=== PATIENT | male | born 1965 | race Caucasian/White ===

== ENCOUNTER 2016-10-25 20:05 | Emergency (ER) | payer MEDICARE, MEDICAID ==
[~2016-10-25] VITALS: Ht 172.7 cm; Wt 68.2 kg
[~2016-10-25 20:05] MED LIST: ALTACE5 MG OR; AMIODARONE200 MG PO; ASA LO-DOSE81 MG OR; ASPIRIN325 MG PO; ASPIRIN81 MG PO; ATORVASTATIN CA40 MG PO; BUMETANIDE1 MG PO; CARVEDILOL25 MG PO; COLACE100 MG OR; CORTISPORIN OTI10 M2 AS; CYMBALTA30 MG PO; FAMOTIDINE20 M1 PO; FOLIC ACID1 MG PO; HYDRALAZINE HCL50 MG PO; KLOR-CON20 MEQ PO; LIPITOR40 M1 PO; LISINOPRIL5 MG PO; LOPRESSOR OR; LORTAB 5 OR; MULT VITAMI1 PO; NEURONTIN100 MG PO; PERCOCET 5/325M1 TAB OR; PLAVIX75 MG OR; PLAVIX75 MG PO; REGLAN5 MG OR; ULTRAM50 MG OR; VIAGRA50 MG PO; WARFARIN4 MG PO; XANAX0.25 MG OR; XANAX0.5 MG OR; ZOCOR20 MG OR; ZOLPIDEM5 M1 PO
[2016-10-25 20:38] LABS: HEMATOCRIT 32.6 % (39.0-50.0); IMMATURE GRANULOCYTES 0.4 % (0.0-1.0); MEAN CELL VOLUME 69.8 fL CALC (80.0-100.0); MEAN CORPUSCULAR HGB 21.4 pG CALC (26.0-32.0); MEAN CORPUSCULAR HGB CONC 30.7 g/L CALC (32.0-36.0); NEUT# 6.14 thou/uL (1.82-7.42); RED BLOOD COUNT 4.67 mill/uL (4.70-6.10); RED CELL DISTRI WIDTH 19.7 % (11.5-15.5)
[2016-10-25] MEDS ORDERED: BUMETANIDE1 MG PO (20:38)
[2016-10-25 20:39] LABS: URINE BILIRUBIN - DIPSTICK NEGATIVE (NEGATIVE); URINE BLOOD DIPSTICK NEGATIVE (NEGATIVE); URINE CLARITY CLEAR; URINE COLOR YELLOW; URINE GLUCOSE - DIPSTICK NEGATIVE (NEGATIVE); URINE KETONE NEGATIVE (NEGATIVE); URINE LEUK ESTERASE NEGATIVE (NEGATIVE); URINE NITRITE - DIPSTICK NEGATIVE (Negative); URINE PH 7.5 (4.5-8.0); URINE PROTEIN - DIPSTICK TRACE mg/dL (NEG-TRACE); URINE UROBILINOGEN - DIPSTICK 0.2 E.U./dL (0.2)
[2016-10-25] MEDS ORDERED: NEURONTIN100 MG PO (20:40)
[2016-10-25] MEDS ORDERED: HYDRALAZINE25 MG PO (20:42)
[2016-10-25] MEDS ORDERED: LISINOPRIL5 MG PO (20:43)
[2016-10-25] MEDS ORDERED: NORCO1 TA1 PO (20:47)
[2016-10-25 20:56] LABS: ALBUMIN 4.8 g/dL (3.2-5.0); BILIRUBIN, TOTAL 0.8 mg/dL (0.0-1.4); CALCIUM 9.9 mg/dL (8.4-10.2); CREATININE 1.7 mg/dL (0.7-1.3); INTERNATIONAL NORMALIZED RATIO 2.8 RATIO (0.7-1.3); POTASSIUM 3.4 mmol/l (3.5-5.1); PROTHROMBIN TIME 31.9 SECONDS (9.0-12.5); TOTAL PROTEIN 8.1 g/dL (6.3-8.2)
[2016-10-26] MEDS ORDERED: CEFZIL500 MG PO (00:19)
== END 2016-10-26 00:28 | disposition left against medical advice (07) ==
LOC: ED 20:05
PROVIDERS: Emergency Medicine
DX: R07.9 Chest pain, unspecified (principal); I25.10 Atherosclerotic heart disease of native coronary artery without angina pectoris; E78.5 Hyperlipidemia, unspecified; I50.9 Heart failure, unspecified; I25.2 Old myocardial infarction; Z95.5 Presence of coronary angioplasty implant and graft; Z95.1 Presence of aortocoronary bypass graft; Z95.810 Presence of automatic (implantable) cardiac defibrillator; F17.210 Nicotine dependence, cigarettes, uncomplicated; Z91.19 Patient's noncompliance with other medical treatment and regimen; Z95.811 Presence of heart assist device

== ENCOUNTER 2017-06-20 15:13 | Emergency (ER) | payer MEDICARE, MEDICAID ==
[~2017-06-20] VITALS: Ht 172.7 cm; Wt 68.0 kg
[~2017-06-20 15:13] MED LIST changes: +CEFZIL500 MG PO; +HYDRALAZINE25 MG PO; +NORCO1 TA1 PO
[2017-06-20] MEDS ORDERED: ASPERCREME LIDOCA41 TOP (16:30)
[2017-06-20] MEDS ORDERED: MOTRIN400 MG PO (16:30)
== END 2017-06-20 16:44 | disposition home or self-care (01) ==
LOC: ED 15:13
DX: S93.401A Sprain of unspecified ligament of right ankle, initial encounter (principal); S80.01XA Contusion of right knee, initial encounter; S90.01XA Contusion of right ankle, initial encounter; X50.1XXA Overexertion from prolonged static or awkward postures, initial encounter; Y93.01 Activity, walking, marching and hiking; Y92.009 Unspecified place in unspecified non-institutional (private) residence as the place of occurrence of the external cause

== ENCOUNTER 2018-01-19 04:40 | Emergency (ER) | payer OTHER ==
[~2018-01-19] VITALS: Ht 172.7 cm; Wt 68.0 kg
[~2018-01-19 04:40] MED LIST changes: +ASPERCREME LIDOCA41 TOP; +MOTRIN400 MG PO
[2018-01-19 05:27] LABS: HEMATOCRIT 38.9 % (39.0-50.0); HEMOGLOBIN 13.6 g/dl (14.0-18.0); IMMATURE GRANULOCYTES 0.6 % (0.0-5.0); MEAN CELL VOLUME 87.4 fL CALC (80.0-100.0); MEAN CORPUSCULAR HGB 30.6 pG CALC (26.0-32.0); NEUT# 6.37 thou/uL (1.82-7.42); RED BLOOD COUNT 4.45 mill/uL (4.70-6.10); RED CELL DISTRI WIDTH 15.8 % (11.5-15.5)
[2018-01-19 05:44] LABS: ALBUMIN 4.1 g/dL (3.2-5.0); ALKALINE PHOSPHATASE 104 u/l (38-126); BILIRUBIN, TOTAL 0.5 mg/dL (0.0-1.4); BUN 11 mg/dL (9-20); BUN/CREATININE RATIO 8 (12-20 (CALC)); CARBON DIOXIDE 26 mmol/l (22-30); CHLORIDE 102 mmol/l (95-108); CREATININE 1.3 mg/dL (0.7-1.3); ETHYL ALCOHOL 167 mg/dl (0-30); GFR 58 ML/MIN (>=60 (CALC)); GFR FOR AFR.AMER. > 60 ML/MIN (>=60 (CALC)); SODIUM 143 mmol/l (137-146); TOTAL PROTEIN 7.3 g/dL (6.3-8.2)
[2018-01-19 05:51] LABS: ANION GAP 18 (6-22 (CALC)); POTASSIUM 3.1 mmol/l (3.5-5.1); SGOT/AST 60 u/l (17-59)
[2018-01-19 05:55] LABS: INTERNATIONAL NORMALIZED RATIO 1.8 RATIO (0.7-1.3)
[2018-01-19 07:09] LABS: URINE BILIRUBIN - DIPSTICK NEGATIVE (NEGATIVE); URINE BLOOD DIPSTICK NEGATIVE (NEGATIVE); URINE COLOR YELLOW; URINE GLUCOSE - DIPSTICK NEGATIVE (NEGATIVE); URINE KETONE NEGATIVE (NEGATIVE); URINE LEUK ESTERASE NEGATIVE (Negative); URINE NITRITE - DIPSTICK NEGATIVE (Negative); URINE PH 6.5 (4.5-8.0); URINE PROTEIN - DIPSTICK NEGATIVE (NEG-TRACE); URINE SPECIFIC GRAVITY <=1.005; URINE UROBILINOGEN - DIPSTICK 0.2 E.U./dL (0.2)
[2018-01-19 07:12] LABS: BARBITURATES NEGATIVE (NEGATIVE); COCAINE NEGATIVE (NEGATIVE); METHADONE NEGATIVE (NEGATIVE); OXCYCODONE NEGATIVE (NEGATIVE); TETRAHYDROCANNABIONOL POSITIVE (NEGATIVE); TRICYLIC ANTIDEPRESSANTS NEGATIVE (NEGATIVE); URINE CLARITY CLEAR
[2018-01-19] MEDS ORDERED: MOTRIN400 MG PO (08:02)
[2018-01-19] MEDS ORDERED: HYDROCO/APAP1 TA9 PO (08:13)
== END 2018-01-19 08:41 | DRG 552 ==
LOC: ED 04:40
PROVIDERS: Emergency Medicine
DX: S32.040A Wedge compression fracture of fourth lumbar vertebra, initial encounter for closed fracture (principal); S50.812A Abrasion of left forearm, initial encounter; F10.129 Alcohol abuse with intoxication, unspecified; F17.210 Nicotine dependence, cigarettes, uncomplicated; V48.5XXA Car driver injured in noncollision transport accident in traffic accident, initial encounter